=== PATIENT | female | born 1995 | race Caucasian/White ===

== ENCOUNTER 2019-03-15 20:45 | Emergency (ER) | payer BC ==
[2019-03-15 21:12] VITALS: BP 133/84
--- NOTE | 2019-03-15 22:17 | EDM.PDOC ---
ED HPI GENERAL MEDICAL PROBLEM - General Chief Complaint: ENT Problem Stated Complaint: DRY SOCKET? Time Seen by Provider: 03/15/19 21:30 Source of Information: Reports: Patient History Limitations: Reports: No Limitations - History of Present Illness INITIAL COMMENTS - FREE TEXT/NARRATIVE: dry socket left lower, hasn't contacted dentist, no fever. Unhappy with oral surgeon. Pain not relieved with ibuprofen and hydro. No fever. Left Lower Gums Pain Score (Numeric/FACES): 8 - Related Data Allergies Allergy/AdvReac Type Severity Reaction Status Date / Time No Known Allergies Allergy Verified 03/15/19 21:12 Home Meds: Home Meds . 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: Musculoskeletal History: Reports: Fracture, Other (See Below) Other Musculoskeletal History: fracture in right foot and fracture in right arm and dislocated right elbow - Past Surgical History HEENT Surgical History: Reports: Other (See Below) Other HEENT Surgeries/Procedures: wisdom teeth removed Social & Family History - Tobacco Use Smoking Status *Q: Never Smoker Second Hand Smoke Exposure: No - Caffeine Use Caffeine Use: Reports: Coffee, Tea - Recreational Drug Use Recreational Drug Use: No ED ROS ENT - Review of Systems Review Of Systems: ROS reveals no pertinent complaints other than HPI. ED EXAM, ENT - Physical Exam Exam: See Below Exam Limited By: No Limitations General Appearance: Alert, Anxious, Moderate Distress Eye Exam: Bilateral Eye: EOMI Ears: Normal External Exam, Normal TMs Nose: Normal Inspection Mouth/Throat: Dental Pain, Dental Tenderness (left posterior lower, mild swelling of gum, extraction site visible, no bleeding), Other (light yellowbruising to left anterior jaw. ). No: Normal Lips (large yellow fluid filled blister bilaterla lower inner at corners of mouth), Bleeding Head: Atraumatic, Normocephalic Neck: Normal Inspection, Full Range of Motion Respiratory/Chest: No Respiratory Distress, Lungs Clear Cardiovascular: Normal Peripheral Pulses GI/Abdominal: Normal Bowel Sounds Extremities: Normal Inspection Neurological: Alert, Oriented, Normal Cognition Psychiatric: Anxious Skin: Warm, Dry, Intact. No: Pallor Course - Vital Signs Last Recorded V/S: Last Vital Signs Temp 99.1 F 03/15/19 21:09 Pulse 80 03/15/19 21:09 Resp 18 03/15/19 21:09 BP 133/84 03/15/19 21:09 Pulse Ox 100 03/15/19 21:09 - Orders/Labs/Meds Meds: Medications Discontinued Medications Generic Name Dose Route Start Last Admin Trade Name Jhoana PRN Reason Stop Dose Admin Amoxicillin Confirm 03/15/19 22:13 03/15/19 22:25 Amoxil Administered 03/15/19 22:14 Not Given Dose 500 mg .ROUTE .STK-MED ONE Lidocaine HCl Confirm 03/15/19 22:14 03/15/19 22:25 Xylocaine 2% Viscous Administered 03/15/19 22:15 Not Given Dose 15 ml .ROUTE .STK-MED ONE Oxycodone/Acetaminophen Confirm 03/15/19 22:13 03/15/19 22:25 Percocet 325-5 Mg Administered 03/15/19 22:14 Not Given Dose 2 tab .ROUTE .STK-MED ONE Departure - Departure Time of Disposition: 22:14 Disposition: Home, Self-Care 01 Condition: Good Clinical Impression: Pain, dental - Discharge Information *PRESCRIPTION DRUG MONITORING PROGRAM REVIEWED*: No *COPY OF PRESCRIPTION DRUG MONITORING REPORT IN PATIENT ROBINSON: No Instructions: Dental Dry Socket, [id number] Forms: ED Department Discharge Additional Instructions: follow up with oral surgeon increase fluids percoct 5/325 one every 6 hours as needed tonight- Do not take hydrocodone tonight ibuprofen 600mg every 4-6 hours as needed viscous lidocain apply thin layer every 2 hours as needed for discomfort amoxicillin 500mg one three times daily for one week
[2019-03-15] MEDS: Amoxicillin 500 MG Cap ONE (22:25)
[2019-03-15] MEDS: Acetaminophen/oxyCODONE 325-5 MG Tab ONE (22:25)
[2019-03-15] MEDS: Lidocaine 2% Viscous Solution 15 ML Cup ONE (22:25)
== END 2019-03-15 22:24 | disposition home or self-care (01) ==
LOC: DL.ED 20:45
DX: K08.89 Other specified disorders of teeth and supporting structures (principal)
CPT/HCPCS: 99282

== ENCOUNTER 2021-11-11 21:24 | Emergency (ER) | payer BC, OTHER ==
[2021-11-11] MEDS ORDERED: Codeine/Promethazine 10-6.25 MG/5 ML Syrup 5 ML UD Cup PO ONE (21:25)
[2021-11-11 22:41] LABS: CORONAVIRUS COVID-19 NAA NEGATIVE (NEGATIVE)
[2021-11-11 22:59] VITALS: PULSE 90
[2021-11-11] MEDS ORDERED: Acetaminophen/HYDROcodone 325-10 MG Tab PO ONE (23:01)
[2021-11-11 23:12] VITALS: BP 126/90
--- NOTE | 2021-11-11 23:56 | CR ---
PROCEDURE INFORMATION: Exam: XR Chest Exam date and time: 11/11/2021 11:27 PM Age: 26 years old Clinical indication: Other: Cough TECHNIQUE: Imaging protocol: XR of the chest. Views: 1 view. COMPARISON: No relevant prior studies available. FINDINGS: Lungs: Unremarkable. No consolidation. Pleural spaces: Unremarkable. No pleural effusion. No pneumothorax. Heart/Mediastinum: Unremarkable. No cardiomegaly. Bones/joints: Unremarkable. IMPRESSION: No acute findings.
[2021-11-12] MEDS ORDERED: Albuterol 6.7 GM Inhaler INH ONE (00:30)
[2021-11-12] MEDS ORDERED: Codeine/Promethazine 10-6.25 MG/5 ML Syrup 5 ML UD Cup ONE (00:30)
--- NOTE | 2021-11-12 00:30 | EDM.PDOC ---
ED HPI GENERAL MEDICAL PROBLEM - General Chief Complaint: Respiratory Problem Stated Complaint: HARD TIME BRETHING Time Seen by Provider: 11/11/21 22:10 Source of Information: Reports: Patient History Limitations: Reports: No Limitations - History of Present Illness INITIAL COMMENTS - FREE TEXT/NARRATIVE: ED with c/o severe cough to point of vomiting, chills, malaise, NOn -vaccinated. No known exposure. Nauseated. No diarrhea. No urinary sx. Onset Alpa. 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 Hematologic History: Reports: Anemia - Past Surgical History HEENT Surgical History: Reports: Other (See Below) Other HEENT Surgeries/Procedures: wisdom teeth removed Musculoskeletal Surgical History: Reports: Other (See Below) Other Musculoskeletal Surgeries/Procedures:: right elbow/arm srugery. collar bones. dislocated knee Social & Family History - Tobacco Use Tobacco Use Status *Q: Never Tobacco User - Caffeine Use Caffeine Use: Reports: None - Recreational Drug Use Recreational Drug Use: No ED ROS GENERAL - Review of Systems Review Of Systems: Comprehensive ROS is negative, except as noted in HPI. ED EXAM, GENERAL - Physical Exam Exam: See Below Exam Limited By: No Limitations General Appearance: Alert, Anxious, Moderate Distress Eye Exam: Bilateral Eye: EOMI Ears: Normal External Exam, Hearing Grossly Normal, Normal TMs Nose: Normal Inspection Throat/Mouth: Normal Inspection Head: Atraumatic, Normocephalic Neck: Normal Inspection Respiratory/Chest: No Respiratory Distress, Decreased Breath Sounds Cardiovascular: Normal Peripheral Pulses, Regular Rate, Rhythm, Tachycardia GI/Abdominal: Normal Bowel Sounds, Soft, Tender (below ribs with movment and palpation) Back Exam: Normal Inspection Extremities: Normal Inspection Neurological: Alert, Oriented, Normal Cognition Psychiatric: Anxious Skin Exam: Warm, Dry, Pallor Course - Vital Signs Last Recorded V/S: Last Vital Signs Temp 99.1 F 11/12/21 00:43 Pulse 90 11/11/21 22:58 Resp 20 11/11/21 22:58 BP 126/90 11/11/21 23:12 Pulse Ox 100 11/11/21 22:58 - Orders/Labs/Meds Labs: Laboratory Tests 11/11/21 Range/Units 21:57 Influenza Type A RNA Positive H (NEGATIVE) Influenza Type B RNA Negative (NEGATIVE) SARS-CoV-2 RNA (FRANCOIS) Negative (NEGATIVE) Meds: Medications Discontinued Medications Generic Name Dose Route Start Last Admin Trade Name Freq PRN Reason Stop Dose Admin Hydrocodone Bitart/Acetaminophen 1 tab 11/11/21 23:01 11/11/21 23:10 Acetaminophen/Hydrocodone 325-10 Mg Tab PO 11/11/21 23:02 1 tab ONETIME ONE Administration Albuterol Confirm 11/12/21 00:30 11/12/21 00:43 Albuterol 6.7 Gm Inhaler Administered 11/12/21 00:31 Not Given Dose 6.7 gm INH .STK-MED ONE Promethazine HCl/Codeine Confirm 11/12/21 00:30 11/12/21 00:43 Codeine/Promethazine 10-6.25 Mg/5 Ml Syrup 5 Ml Ud Cup Administered 11/12/21 00:31 Not Given Dose 10 ml .ROUTE .STK-MED ONE Promethazine HCl/Codeine 5 ml 11/11/21 21:25 Codeine/Promethazine 10-6.25 Mg/5 Ml Syrup 5 Ml Ud Cup PO 11/11/21 21:26 .STK-MED ONE Departure - Departure Time of Disposition: 00:29 Disposition: Home, Self-Care 01 Condition: Good Clinical Impression: Influenza A, Cough - Discharge Information *PRESCRIPTION DRUG MONITORING PROGRAM REVIEWED*: No *COPY OF PRESCRIPTION DRUG MONITORING REPORT IN PATIENT ROBINSON: No Instructions: Influenza, Adult, [id number] Forms: ED Department Discharge Additional Instructions: albuterol 2 puffs every 4 hours as needed for wheezing and cough phenergan with codeine every 6 hours as needed encourage fluids alternate tylenol and ibuprofen every 4 hours as needed Sepsis Event Note (ED) - Evaluation Sepsis Screening Result: No Definite Risk
== END 2021-11-12 00:46 | disposition home or self-care (01) ==
LOC: DL.ED 21:24
DX: J10.1 Influenza due to other identified influenza virus with other respiratory manifestations (principal); Z20.822 Contact with and (suspected) exposure to COVID-19
CPT/HCPCS: 0240U; 71045; 99283; A9270